=== PATIENT | female | born 1940 | race Native Hawaiian/Other Pacific Islander ===

== ENCOUNTER 2017-01-09 08:52 | Outpatient (CLI) | payer OTHER ==
[2017-01-09 10:14] LABS: PLATELET COUNT 224 K/uL (152-353)
[2017-01-09 10:35] LABS: POTASSIUM 4.4 mmol/L (3.6-5.2)
== END 2017-01-09 10:00 | disposition home or self-care (01) ==
LOC: LABW 08:52
PROVIDERS: Internal Medicine
DX: R53.83 Other fatigue (principal); R41.82 Altered mental status, unspecified; R06.09 Other forms of dyspnea
CPT/HCPCS: 36415; 80053; 82550; 82607; 83880; 84443; 85027

== ENCOUNTER 2017-03-26 11:20 | Outpatient (CLI) | payer OTHER | END 2017-03-26 21:10 | disposition home or self-care (01) | LOC: RAD 11:20 | DX: M81.0 Age-related osteoporosis without current pathological fracture (principal) ==

== ENCOUNTER 2017-06-09 18:55 | Emergency (ER) | payer OTHER ==
[~2017-06-09] VITALS: Ht 154.9 cm; Wt 70.3 kg
[2017-06-09] MEDS ORDERED: LISI20TA11 PO (19:22)
[2017-06-09] MEDS ORDERED: FLUO10CA2 PO (19:23)
[2017-06-09] MEDS ORDERED: LEVO0.0218 PO (19:23)
[2017-06-09] MEDS ORDERED: ATEN25TA21 PO (19:23)
[2017-06-09] MEDS ORDERED: ALEN70TA19 PO (19:24)
[2017-06-09 21:02] VITALS: BP 141/71; TEMP 98.1
== END 2017-06-09 21:06 | disposition home or self-care (01) ==
LOC: ED 18:55
PROC: 2W3DX1Z Immobilization of Left Lower Arm using Splint (ICD-10-PCS; principal; 2017-06-09)
DX: S52.592A Other fractures of lower end of left radius, initial encounter for closed fracture (principal); W01.0XXA Fall on same level from slipping, tripping and stumbling without subsequent striking against object, initial encounter; Y92.098 Other place in other non-institutional residence as the place of occurrence of the external cause
CPT/HCPCS: 99283; L3908

== ENCOUNTER 2017-09-11 10:20 | Outpatient (CLI) | payer OTHER ==
[~2017-09-11 10:20] MED LIST: ALEN70TA19 PO; ATEN25TA21 PO; FLUO10CA2 PO; LEVO0.0218 PO; LISI20TA11 PO
[2017-09-11 11:17] LABS: POTASSIUM 3.4 mmol/L (3.6-5.2)
== END 2017-09-11 20:24 | disposition home or self-care (01) ==
LOC: LABW 10:20
PROVIDERS: Internal Medicine
DX: I10 Essential (primary) hypertension (principal); E55.9 Vitamin D deficiency, unspecified
CPT/HCPCS: 36415; 80053; 82306; 82607; 84443

== ENCOUNTER 2017-12-21 17:15 | Outpatient (CLI) | payer OTHER | END 2017-12-21 17:22 | disposition short-term general hospital (02) | LOC: AMB 17:15 | DX: R40.4 Transient alteration of awareness (principal) | CPT/HCPCS: A0425; A0427 ==

== ENCOUNTER 2017-12-21 21:11 | Outpatient (CLI) | payer OTHER | END 2017-12-21 22:26 | disposition short-term general hospital (02) | LOC: AMB 21:11 | DX: I21.29 ST elevation (STEMI) myocardial infarction involving other sites (principal) | CPT/HCPCS: A0425; A0427 ==